=== PATIENT | female | born 1940 | race Two or more races ===

== ENCOUNTER 2017-11-23 12:09 | Outpatient (CLI) | payer OTHER | END 2017-11-23 16:57 | disposition home or self-care (01) | LOC: RAD 12:09 | DX: N20.0 Calculus of kidney (principal) ==

== ENCOUNTER 2017-11-23 12:15 | Outpatient (CLI) | payer OTHER | END 2017-11-23 17:02 | disposition home or self-care (01) | LOC: MAMO-SONO 12:15 | DX: Z12.31 Encounter for screening mammogram for malignant neoplasm of breast (principal); Z87.898 Personal history of other specified conditions; R91.8 Other nonspecific abnormal finding of lung field ==

== ENCOUNTER 2017-12-25 13:24 | Outpatient (CLI) | payer OTHER | END 2017-12-25 13:35 | disposition home or self-care (01) | LOC: SONOGRAMA 13:24 → MAMO-SONO 13:24 → SONOGRAMA 13:35 | DX: N60.12 Diffuse cystic mastopathy of left breast (principal) ==

== ENCOUNTER 2018-11-03 15:54 | Outpatient (CLI) | payer OTHER | END 2018-11-03 16:33 | disposition home or self-care (01) | LOC: RAD 15:54 | DX: M15.0 Primary generalized (osteo)arthritis (principal); M25.562 Pain in left knee; M25.462 Effusion, left knee ==

== ENCOUNTER → 2018-11-17 | Outpatient (CLI) | payer OTHER | END | disposition home or self-care (01) | LOC: NUCLEAR 09:00 | DX: M19.90 Unspecified osteoarthritis, unspecified site (principal); M06.9 Rheumatoid arthritis, unspecified; R25.2 Cramp and spasm | CPT/HCPCS: 78306; 78315; A9503 ==

== ENCOUNTER 2018-12-31 13:37 | Emergency (ER) | payer OTHER ==
[~2018-12-31] VITALS: Ht 162.6 cm; Wt 77.1 kg
== END 2018-12-31 21:52 | disposition home or self-care (01) ==
LOC: ER 13:37
DX: R07.89 Other chest pain (principal)

== ENCOUNTER 2019-07-21 11:55 | Outpatient (CLI) | payer OTHER | END 2019-07-21 12:10 | disposition home or self-care (01) | LOC: MAMO-SONO 11:55 | DX: N60.29 Fibroadenosis of unspecified breast (principal); Z12.31 Encounter for screening mammogram for malignant neoplasm of breast ==

== ENCOUNTER → 2019-07-21 | Outpatient (CLI) | payer OTHER | END | disposition home or self-care (01) | LOC: TOM 10:25 | DX: Z86.73 Personal history of transient ischemic attack (TIA), and cerebral infarction without residual deficits (principal) ==

== ENCOUNTER → 2019-07-21 | Outpatient (CLI) | payer OTHER | END | disposition home or self-care (01) | LOC: TOM 10:00 → NUCLEAR 12:57 → TOM 12:57 | DX: I67.89 Other cerebrovascular disease (principal); Z86.73 Personal history of transient ischemic attack (TIA), and cerebral infarction without residual deficits ==

== ENCOUNTER 2019-11-29 12:18 | Outpatient (CLI) | payer OTHER | END 2019-11-29 12:20 | disposition home or self-care (01) | LOC: RAD 12:18 | DX: I10 Essential (primary) hypertension (principal) ==

== ENCOUNTER → 2019-12-07 14:36 | Outpatient (CLI) | payer OTHER | END | disposition home or self-care (01) | LOC: LAB 14:36 | DX: R19.5 Other fecal abnormalities (principal) ==

== ENCOUNTER 2019-12-12 10:17 | Outpatient (CLI) | payer OTHER | END 2019-12-12 11:00 | disposition home or self-care (01) | LOC: MRI | DX: R19.5 Other fecal abnormalities (principal); K58.0 Irritable bowel syndrome with diarrhea; R10.13 Epigastric pain | CPT/HCPCS: 74183; A9575; 72141 ==

== ENCOUNTER 2020-03-28 09:09 | Outpatient (CLI) | payer OTHER | END 2020-03-28 09:16 | disposition home or self-care (01) | LOC: RAD 09:09 | PROVIDERS: ATTEND Internal Medicine Cardiovascular Disease | DX: I10 Essential (primary) hypertension (principal) ==

== ENCOUNTER 2020-11-28 14:37 | Outpatient (CLI) | payer OTHER | END 2020-11-28 14:49 | disposition home or self-care (01) | LOC: RAD 14:37 | PROVIDERS: ATTEND Orthopaedic Surgery | DX: M25.551 Pain in right hip (principal); M25.552 Pain in left hip; M79.641 Pain in right hand; M79.642 Pain in left hand ==

== ENCOUNTER 2020-11-30 11:38 | Outpatient (CLI) | payer OTHER | END 2020-11-30 11:40 | disposition home or self-care (01) | LOC: SONOGRAMA 11:38 | PROVIDERS: ATTEND Dermatology | DX: N60.11 Diffuse cystic mastopathy of right breast (principal); N60.12 Diffuse cystic mastopathy of left breast; N64.59 Other signs and symptoms in breast ==

== ENCOUNTER 2022-09-04 12:28 | Outpatient (CLI) | payer OTHER | END 2022-09-04 12:31 | disposition home or self-care (01) | LOC: RAD 12:28 | PROVIDERS: ATTEND Psychiatry & Neurology Clinical Neurophysiology | DX: M43.14 Spondylolisthesis, thoracic region (principal) ==

== ENCOUNTER 2022-12-30 11:06 | Outpatient (CLI) | payer OTHER | END 2022-12-30 11:11 | disposition home or self-care (01) | LOC: MAMO-SONO 11:06 | PROVIDERS: ATTEND Obstetrics & Gynecology Gynecology | DX: N60.11 Diffuse cystic mastopathy of right breast (principal); N60.12 Diffuse cystic mastopathy of left breast ==

== ENCOUNTER 2023-09-16 10:37 | Outpatient (CLI) | payer OTHER | END 2023-09-16 10:44 | disposition home or self-care (01) | LOC: SONOGRAMA 10:37 | PROVIDERS: ATTEND Specialist | DX: D17.71 Benign lipomatous neoplasm of kidney (principal) ==

== ENCOUNTER 2023-09-16 12:11 | Outpatient (CLI) | payer OTHER | END 2023-09-16 12:16 | disposition home or self-care (01) | LOC: NUCLEAR 12:11 | PROVIDERS: ATTEND Specialist | DX: M18.9 Osteoarthritis of first carpometacarpal joint, unspecified (principal); Z13.820 Encounter for screening for osteoporosis ==

== ENCOUNTER 2023-09-21 14:43 | Outpatient (CLI) | payer OTHER | END 2023-09-21 14:47 | disposition home or self-care (01) | LOC: RAD 14:43 | PROVIDERS: ATTEND Orthopaedic Surgery | DX: M25.562 Pain in left knee (principal); Z88.6 Allergy status to analgesic agent; Z91.013 Allergy to seafood ==